=== PATIENT | female | born 1975 | race Two or more races ===

== ENCOUNTER → 2016-03-05 | Outpatient (CLI) | payer BC ==
[2016-03-05 09:56] LABS: Urine RBC None Seen /hpf (0 - 4)
[2016-03-05 10:14] LABS: Basophils # (auto) 0 uL; Basophils % (auto) 0.4 % (0.0-2.0); DEFINITIVE VIEW TRANSMISSION; Eosinophils # (auto) 0.2 uL; Eosinophils % (auto) 1.6 % (0.0-7.0); Hematocrit 37.7 % (36.0-46.0); Hemoglobin 11.3 g/dL (12.2-16.2); Lymphocytes # (auto) 1.3 uL; Lymphocytes % (auto) 13.3 % (10.0-50.0); Mean Corpuscular Volume 66.4 fL (80.0-100.0); Mean Platelet Volume 8.1 fL (7.4-10.4); Monocytes # (auto) 0.8 uL; Monocytes % (auto) 8.3 % (0.0-12.0); Neutrophils # (auto) 7.3 uL; Neutrophils % (auto) 76.4 % (37.0-80.0); Platelet Count (auto) 412 10^3/uL (140-450); Red Cell Distribution Width 20.4 % (11.6-16.0); White Blood Cell 9.6 10^3/uL (4.4-10.8)
[2016-03-05 10:52] LABS: Albumin 3.6 g/dL (3.4-5.0); BUN/Creatinine Ratio 15.9; Bilirubin, Total 0.5 mg/dL (0.2-1.0); Calcium 8.5 mg/dL (8.5-10.1)
[2016-03-05 11:07] LABS: Urine Bilirubin Negative (Negative); Urine Blood Negative /uL (Negative); Urine Color Yellow (Yellow); Urine Glucose Normal (Normal); Urine Ketone Negative (Negative); Urine Mucus FEW (None Seen); Urine Nitrite Negative (Negative); Urine Squamous Epithelial Cell MOD /hpf (<5); Urine Urobilinogen Normal (Negative)
[2016-03-05 13:55] LABS: Anisocytosis Moderate; Hypochromia Marked; Microcytosis Marked; Platelet Estimate Adequate
== END | disposition home or self-care (01) ==
LOC: LAB 09:08
PROVIDERS: ATTEND Family Medicine
DX: E11.9 Type 2 diabetes mellitus without complications (principal); I10 Essential (primary) hypertension
CPT/HCPCS: 36415; 80053; 80061; 81001; 82043; 82306; 83036; 84443; 85025; 85049

== ENCOUNTER → 2016-03-22 | Outpatient (CLI) | payer BC | END | disposition home or self-care (01) | LOC: LAB 12:58 | PROVIDERS: ATTEND Physician Assistant | DX: R51 Headache (principal); N39.0 Urinary tract infection, site not specified | CPT/HCPCS: 87086 ==

== ENCOUNTER → 2016-05-31 | Outpatient (CLI) | payer BC ==
[2016-05-31 07:35] LABS: Urine Bilirubin Negative (Negative); Urine Blood TRACE /uL (Negative); Urine Color Yellow (Yellow); Urine Glucose Normal (Normal); Urine Ketone Negative (Negative); Urine Mucus FEW (None Seen); Urine Nitrite Negative (Negative); Urine RBC 1 /hpf (0 - 4); Urine Squamous Epithelial Cell MOD /hpf (<5); Urine Urobilinogen Normal (Negative)
[2016-05-31 07:36] LABS: Basophils # (auto) 0.1 uL; Basophils % (auto) 1.3 % (0.0-2.0); DEFINITIVE VIEW TRANSMISSION; Eosinophils # (auto) 0.2 uL; Eosinophils % (auto) 1.8 % (0.0-7.0); Hematocrit 44.5 % (36.0-46.0); Lymphocytes # (auto) 1.5 uL; Lymphocytes % (auto) 16.2 % (10.0-50.0); Mean Corpuscular Hemoglobin 24.6 pg (28.0-32.0); Mean Corpuscular Hgb Conc. 31.4 g/dL (32.0-36.0); Mean Corpuscular Volume 78.4 fL (80.0-100.0); Mean Platelet Volume 8.8 fL (7.4-10.4); Monocytes # (auto) 0.8 uL; Monocytes % (auto) 8.1 % (0.0-12.0); Neutrophils # (auto) 6.9 uL; Neutrophils % (auto) 72.6 % (37.0-80.0); Platelet Count (auto) 358 10^3/uL (140-450); SUSPECT VIEW TRANSMISSION; White Blood Cell 9.5 10^3/uL (4.4-10.8)
[2016-05-31 07:49] LABS: INR 0.96 (0.9-1.15); Partial Thromboplastin Time 24.7 sec (22.64-33.71); Prothrombin Time 10.4 sec (9.37-12.3)
[2016-05-31 07:57] LABS: Red Cell Distribution Width 28.8 % (11.6-16.0)
[2016-05-31 08:25] LABS: Albumin 3.5 g/dL (3.4-5.0); BUN/Creatinine Ratio 15.5; Bilirubin, Total 0.7 mg/dL (0.2-1.0); Calcium 8.8 mg/dL (8.5-10.1); Potassium 3.8 mmol/L (3.5-5.1); Total Protein 6.8 g/dL (6.4-8.2)
[2016-05-31 13:32] LABS: Platelet Estimate Adequate
[2016-05-31 13:33] LABS: Anisocytosis Slight; Hypochromia Moderate; Microcytosis Slight; Stomatocytes Few
[2016-05-31 13:35] LABS: Tear Drop Cells FEW
== END | disposition home or self-care (01) ==
LOC: LAB 06:44
PROVIDERS: ATTEND Family Medicine
DX: E11.9 Type 2 diabetes mellitus without complications (principal); Z01.812 Encounter for preprocedural laboratory examination; N92.4 Excessive bleeding in the premenopausal period
CPT/HCPCS: 36415; 80053; 81001; 83036; 85025; 85610; 85730

== ENCOUNTER 2016-07-22 14:08 | Emergency (ER) | payer BC ==
[~2016-07-22] VITALS: Ht 152.4 cm; Wt 81.6 kg
[2016-07-22] MEDS ORDERED: cloNIDine HCL 0.1 MG TAB ONE (14:19)
[2016-07-22] MEDS ORDERED: cloNIDine HCL 0.1 MG TAB PO ONE (14:30)
[2016-07-22 14:56] LABS: Basophils # (auto) 0 uL; Basophils % (auto) 0.3 % (0.0-2.0); Eosinophils # (auto) 0.1 uL; Eosinophils % (auto) 0.6 % (0.0-7.0); Hemoglobin 14.8 g/dL (12.2-16.2); Lymphocytes # (auto) 1.7 uL; Mean Corpuscular Hgb Conc. 32.8 g/dL (32.0-36.0); Mean Corpuscular Volume 82.5 fL (80.0-100.0); Mean Platelet Volume 8.5 fL (7.4-10.4); Monocytes # (auto) 0.9 uL; Monocytes % (auto) 6.8 % (0.0-12.0); Neutrophils # (auto) 11.2 uL; Neutrophils % (auto) 80.3 % (37.0-80.0); Platelet Count (auto) 363 10^3/uL (140-450); Red Cell Distribution Width 17.5 % (11.6-16.0); White Blood Cell 13.9 10^3/uL (4.4-10.8)
[2016-07-22 15:18] LABS: Albumin 3.4 g/dL (3.4-5.0); Anion Gap 11 (5-15); BUN/Creatinine Ratio 20.5; Blood Urea Nitrogen 15 mg/dL (7-18); Carbon Dioxide 24 mmol/L (21-32); Chloride 104 mmol/L (98-107); GFR African American 112 mL/min; GFR Non-African American 92 mL/min; Glucose 210 mg/dL (74-106); Magnesium 2.1 mg/dL (1.6-2.6); Potassium 3.6 mmol/L (3.5-5.1); Sodium 139 mmol/L (136-145)
[2016-07-22 15:25] LABS: Alkaline Phosphatase 80 U/L (45-117); Aspartate Aminotransferase 22 U/L (15-37); Bilirubin, Total 0.2 mg/dL (0.2-1.0); Total Protein 7.1 g/dL (6.4-8.2)
[2016-07-22 16:52] VITALS: BP 127/93
== END 2016-07-22 17:32 | disposition home or self-care (01) ==
LOC: ER 14:17
DX: I16.0 Hypertensive urgency (principal); E11.9 Type 2 diabetes mellitus without complications; I10 Essential (primary) hypertension
CPT/HCPCS: 36415; 70450; 80053; 83735; 84484; 85025

== ENCOUNTER → 2017-05-11 | Outpatient (CLI) | payer BC ==
[2017-05-11 07:59] LABS: Basophils # (auto) 0.1 uL; Eosinophils # (auto) 0.2 uL; Hematocrit 36.9 % (36.0-46.0); Lymphocytes # (auto) 1.6 uL; Mean Corpuscular Hemoglobin 21.5 pg (28.0-32.0); Neutrophils # (auto) 6.1 uL; Red Blood Cells 5.29 10^6/uL (4.0-5.20)
[2017-05-11 08:01] LABS: Basophils % (auto) 0.6 % (0.0-2.0); Eosinophils % (auto) 1.9 % (0.0-7.0); Hemoglobin 11.3 g/dL (12.2-16.2); Lymphocytes % (auto) 18.1 % (10.0-50.0); Mean Corpuscular Hgb Conc. 30.7 g/dL (32.0-36.0); Mean Corpuscular Volume 69.9 fL (80.0-100.0); Monocytes # (auto) 0.8 uL; Monocytes % (auto) 9.3 % (0.0-12.0); Neutrophils % (auto) 70.1 % (37.0-80.0); Platelet Count (auto) 460 10^3/uL (140-450); Red Cell Distribution Width 18.6 % (11.8-14.3); White Blood Cell 8.7 10^3/uL (4.4-10.8)
[2017-05-11 08:19] LABS: Urine Bacteria NONE SEEN /hpf (None Seen); Urine Blood Negative /uL (Negative); Urine Mucus FEW (None Seen); Urine Specific Gravity 1.028 (1.001-1.035); Urine WBC 37 /hpf (0 - 5)
[2017-05-11 09:56] LABS: Albumin 3.4 g/dL (3.4-5.0); BUN/Creatinine Ratio 22.5; Bilirubin, Total 0.5 mg/dL (0.2-1.0); Calcium 8.4 mg/dL (8.5-10.1); Total Protein 6.7 g/dL (6.4-8.2)
[2017-05-11 12:11] LABS: Potassium 3.5 mmol/L (3.5-5.1)
== END | disposition home or self-care (01) ==
LOC: LAB 07:03
PROVIDERS: ATTEND Family Medicine
DX: I10 Essential (primary) hypertension (principal); E11.9 Type 2 diabetes mellitus without complications
CPT/HCPCS: 36415; 80053; 80061; 81001; 82043; 82306; 82607; 83036; 84443; 85025

== ENCOUNTER → 2018-04-07 | Outpatient (CLI) | payer BC ==
[2018-04-07 08:42] LABS: Eosinophils # (auto) 0.1 uL; Hemoglobin 9.7 g/dL (12.2-16.2); Mean Corpuscular Hemoglobin 17.9 pg (28.0-32.0); Neutrophils % (auto) 82.9 % (37.0-80.0); White Blood Cell 10.6 10^3/uL (4.4-10.8)
[2018-04-07 08:44] LABS: Basophils # (auto) 0.1 uL; Basophils % (auto) 0.8 % (0.0-2.0); Eosinophils % (auto) 0.8 % (0.0-7.0); Hematocrit 33.4 % (36.0-46.0); Lymphocytes # (auto) 0.9 uL; Lymphocytes % (auto) 8.1 % (10.0-50.0); Mean Corpuscular Hgb Conc. 29.1 g/dL (32.0-36.0); Mean Corpuscular Volume 61.3 fL (80.0-100.0); Monocytes # (auto) 0.8 uL; Monocytes % (auto) 7.4 % (0.0-12.0); Neutrophils # (auto) 8.8 uL; Platelet Count (auto) 510 10^3/uL (140-450); Red Blood Cells 5.44 10^6/uL (4.0-5.20); Red Cell Distribution Width 19.4 % (11.8-14.3)
[2018-04-07 08:50] LABS: Urine Amorphous Crystal FEW /hpf (None Seen); Urine Bacteria NONE SEEN /hpf (None Seen); Urine Blood Negative /uL (Negative); Urine Specific Gravity 1.012 (1.001-1.035); Urine WBC 26 /hpf (0 - 5); Urine WBC Clumps PRESENT /hpf (None Seen)
[2018-04-07 09:22] LABS: Potassium 3.5 mmol/L (3.5-5.1)
[2018-04-07 09:34] LABS: Albumin 3.5 g/dL (3.4-5.0); BUN/Creatinine Ratio 14.6; Bilirubin, Total 0.5 mg/dL (0.2-1.0); Calcium 8.7 mg/dL (8.5-10.1)
== END | disposition home or self-care (01) ==
LOC: LAB 08:17
PROVIDERS: ATTEND Family Medicine
DX: E55.9 Vitamin D deficiency, unspecified (principal); I10 Essential (primary) hypertension; E11.69 Type 2 diabetes mellitus with other specified complication; R35.0 Frequency of micturition
CPT/HCPCS: 36415; 80053; 80061; 81001; 82306; 82607; 83036; 85025

== ENCOUNTER → 2018-12-05 | Outpatient (CLI) | payer BC ==
[2018-12-05 08:38] LABS: Basophils # (auto) 0.1 uL; Eosinophils # (auto) 0.1 uL; Hemoglobin 8.5 g/dL (12.2-16.2); Lymphocytes # (auto) 1.1 uL; Neutrophils # (auto) 5.5 uL; Platelet Count (auto) 496 10^3/uL (140-450)
[2018-12-05 08:41] LABS: Basophils % (auto) 0.8 % (0.0-2.0); Eosinophils % (auto) 1.5 % (0.0-7.0); Hematocrit 29.8 % (36.0-46.0); Lymphocytes % (auto) 14.3 % (10.0-50.0); Mean Corpuscular Hemoglobin 16.8 pg (28.0-32.0); Mean Corpuscular Hgb Conc. 28.6 g/dL (32.0-36.0); Mean Corpuscular Volume 58.7 fL (80.0-100.0); Monocytes # (auto) 0.8 uL; Monocytes % (auto) 10.6 % (0.0-12.0); Neutrophils % (auto) 72.8 % (37.0-80.0); Nucleated Red Blood Cells % 0.1 %; Red Blood Cells 5.08 10^6/uL (4.0-5.20); White Blood Cell 7.6 10^3/uL (4.4-10.8)
[2018-12-05 08:42] LABS: Red Cell Distribution Width 20.9 % (11.8-14.3)
[2018-12-05 08:44] LABS: Urine Bacteria NONE SEEN /hpf (None Seen); Urine Blood Negative /uL (Negative); Urine Mucus FEW (None Seen); Urine Specific Gravity 1.035 (1.001-1.035); Urine WBC 12 /hpf (0 - 5)
[2018-12-05 09:06] LABS: Albumin 3.5 g/dL (3.4-5.0); BUN/Creatinine Ratio 27.4; Potassium 3.6 mmol/L (3.5-5.1)
[2018-12-05 09:14] LABS: Bilirubin, Total 0.4 mg/dL (0.2-1.0)
== END | disposition home or self-care (01) ==
LOC: LAB 08:01
PROVIDERS: ATTEND Family Medicine
DX: E55.9 Vitamin D deficiency, unspecified (principal); E11.65 Type 2 diabetes mellitus with hyperglycemia; I10 Essential (primary) hypertension; D64.9 Anemia, unspecified
CPT/HCPCS: 36415; 80053; 80061; 81001; 82043; 82607; 83036; 84443; 85025

== ENCOUNTER → 2019-08-27 | Outpatient (CLI) | payer BC ==
[2019-08-27 07:53] LABS: Basophils # (auto) 0.1 10 ^3/uL (0-0.2); Eosinophils # (auto) 0.1 10 ^3/uL (0-0.8); Hemoglobin 9.6 g/dL (12.2-16.2); Lymphocytes # (auto) 1.3 10 ^3/uL (0.4-5.4); Mean Corpuscular Volume 63.4 fL (80.0-100.0)
[2019-08-27 07:57] LABS: Eosinophils % (auto) 1.4 % (0.0-7.0); Hematocrit 32.4 % (36.0-46.0); Lymphocytes % (auto) 15.3 % (10.0-50.0); Mean Corpuscular Hemoglobin 18.9 pg (28.0-32.0); Mean Corpuscular Hgb Conc. 29.8 g/dL (32.0-36.0); Monocytes # (auto) 0.8 10 ^3/uL (0-1.3); Monocytes % (auto) 9.1 % (0.0-12.0); Neutrophils # (auto) 6.1 10 ^3/uL (1.6-8.6); Neutrophils % (auto) 73.2 % (37.0-80.0); Nucleated Red Blood Cells % 0.2 %; Platelet Count (auto) 472 10^3/uL (140-450); Red Blood Cells 5.11 10^6/uL (4.0-5.20); White Blood Cell 8.3 10^3/uL (4.4-10.8)
[2019-08-27 07:59] LABS: Red Cell Distribution Width 20.5 % (11.8-14.3)
[2019-08-27 08:02] LABS: Urine Bacteria NONE SEEN /hpf (None Seen); Urine Blood Negative /uL (Negative); Urine Mucus FEW (None Seen); Urine Specific Gravity 1.022 (1.001-1.035); Urine WBC 10 /hpf (0 - 5)
[2019-08-27 08:19] LABS: Albumin 3.3 g/dL (3.4-5.0); Calcium 8.7 mg/dL (8.5-10.1); Potassium 3.6 mmol/L (3.5-5.1)
[2019-08-27 08:24] LABS: BUN/Creatinine Ratio 22.2; Bilirubin, Direct 0.1 mg/dL (0-0.2); Bilirubin, Total 0.5 mg/dL (0.2-1.0); Total Protein 6.5 g/dL (6.4-8.2)
== END | disposition home or self-care (01) ==
LOC: LAB 07:14
PROVIDERS: ATTEND Family Medicine
DX: I10 Essential (primary) hypertension (principal); E11.65 Type 2 diabetes mellitus with hyperglycemia; K21.9 Gastro-esophageal reflux disease without esophagitis; E66.09 Other obesity due to excess calories; D64.9 Anemia, unspecified
CPT/HCPCS: 36415; 80053; 80061; 80076; 81001; 82043; 82306; 82607; 83036; 85025

== ENCOUNTER → 2020-01-25 | Outpatient (CLI) | payer BC | END | disposition home or self-care (01) | LOC: LAB 13:44 | PROVIDERS: ATTEND Nurse Practitioner Family | DX: U07.1 COVID-19 (principal) | CPT/HCPCS: C9803; U0003 ==

== ENCOUNTER 2020-05-02 18:30 | Inpatient (IN) | payer BC ==
[~2020-05-02] VITALS: Ht 152.4 cm; Wt 77.8 kg
[2020-05-02 19:59] LABS: INR 0.94 (0.9-1.15); Partial Thromboplastin Time 22.9 sec (23.0-31.2)
[2020-05-02 20:02] LABS: Albumin 3.3 g/dL (3.4-5.0); Anion Gap 10 (5-15); Blood Urea Nitrogen 19 mg/dL (7-18); Calcium 8.7 mg/dL (8.5-10.1); Carbon Dioxide 24 mmol/L (21-32); Chloride 105 mmol/L (98-107); Glucose 325 mg/dL (74-106); Sodium 139 mmol/L (136-145)
[2020-05-02 20:08] LABS: Alanine Aminotransferase 28 U/L (13-56); Alkaline Phosphatase 73 U/L (45-117); Aspartate Aminotransferase 19 U/L (15-37); Bilirubin, Total 0.6 mg/dL (0.2-1.0); GFR African American 105 mL/min; GFR Non-African American 87 mL/min; Total Protein 6.8 g/dL (6.4-8.2)
[2020-05-02] MEDS ORDERED: IOHEXOL 350 MG/ML 100ML IJ ONE (21:01)
[2020-05-02] MEDS ORDERED: ASPirin-EC 81 mg tab PO ONE (22:45)
[2020-05-02] MEDS ORDERED: ONDANSETRON HCL 4 MG/2 ML VIAL IV PRN (23:45)
[2020-05-02] MEDS ORDERED: MORPHINE SULF INJ 2 MG/ML SYRINGE 1ML IV PRN (23:45)
[2020-05-02] MEDS ORDERED: hydrALAZINE HCL 20 MG/ML VL IV PRN (23:45)
[2020-05-02] MEDS ORDERED: MORPHINE SULFATE 4 MG/ML SYR/VIAL IV PRN (23:45)
[2020-05-02] MEDS ORDERED: NITROGLYCERIN 0.4 MG SL TAB SL PRN (23:45)
[2020-05-02] MEDS ORDERED: HYDROcodone-ACET 5/325MG TAB PO PRN (23:45)
[2020-05-02] MEDS ORDERED: DOCUSATE SOD 100 MG CAP PO PRN (23:45)
[2020-05-02] MEDS ORDERED: DEXTROSE (50%) 50ML SYRG IV PRN (23:45)
[2020-05-02 23:58] LABS: Basophils # (auto) 0.1 10 ^3/uL (0-0.2); Basophils % (auto) 1.3 % (0.0-2.0); Eosinophils # (auto) 0.1 10 ^3/uL (0-0.8); Eosinophils % (auto) 1.1 % (0.0-7.0); Hematocrit 33.6 % (36.0-46.0); Hemoglobin 10.6 g/dL (12.2-16.2); Lymphocytes # (auto) 1.1 10 ^3/uL (0.4-5.4); Lymphocytes % (auto) 11.2 % (10.0-50.0); Mean Corpuscular Hemoglobin 22.3 pg (28.0-32.0); Mean Corpuscular Hgb Conc. 31.6 g/dL (32.0-36.0); Mean Corpuscular Volume 70.7 fL (80.0-100.0); Monocytes # (auto) 0.7 10 ^3/uL (0-1.3); Monocytes % (auto) 7.1 % (0.0-12.0); Neutrophils % (auto) 79.3 % (37.0-80.0); Platelet Count (auto) 355 10^3/uL (140-450); Red Blood Cells 4.76 10^6/uL (4.0-5.20); Red Cell Distribution Width 17.8 % (11.8-14.3)
[2020-05-03] VITALS (7 sets, daily range): BP systolic 117–138; BP diastolic 64–81
[2020-05-03] MEDS: ACCU-CHEK COMFORT CURVE STRIP VI SCH ×7 (00:59→23:36)
[2020-05-03] MEDS: InsuLIN REG 1unit/0.01ml Soln (100units/ml) SC SCH ×7 (01:12→23:44)
[2020-05-03] MEDS ORDERED: MULT-1018 PO (04:13)
[2020-05-03] MEDS ORDERED: ZINC220C8 PO (04:13)
[2020-05-03] MEDS ORDERED: FERR1TAB36 PO (04:13)
[2020-05-03] MEDS ORDERED: ASCO500T11 PO (04:13)
[2020-05-03] MEDS ORDERED: CARV12.544 PO (04:13)
[2020-05-03] MEDS ORDERED: SITA100T7 PO (04:13)
[2020-05-03] MEDS ORDERED: METF500S PO (04:13)
[2020-05-03] MEDS ORDERED: LOSA-39 PO (04:13)
[2020-05-03] MEDS: SODIUM CHLOR 0.9% PF (SALINE LOCK) 10ML VIAL/SYR IV SCH ×3 (05:40→22:00)
[2020-05-03] MEDS ORDERED: ALBUTEROL SULF HFA 90MCG INH 200DOSE IN SCH (06:00)
[2020-05-03] MEDS ORDERED: ALBUTEROL SULF HFA 90MCG INH 200DOSE IN PRN (06:00)
[2020-05-03] MEDS: ZINC SULFATE 220mg CAP or TAB PO SCH (09:55)
[2020-05-03] MEDS: MULTIPLE VITAMIN TAB PO SCH (09:56)
[2020-05-03] MEDS: amLODIPine BESYLATE 5 MG TAB PO SCH (09:57)
[2020-05-03] MEDS: CHOLECALCIFEROL (VITD3) 1,000UNIT=25mCg TAB PO SCH (09:58)
[2020-05-03] MEDS: FAMOTIDINE 20 MG TAB PO SCH ×2 (09:58→23:36)
[2020-05-03] MEDS: ASCORBIC ACID 500 MG TAB PO SCH ×2 (09:58→23:36)
[2020-05-03] MEDS: ENOXAPARIN SOD 40 MG/0.4 ML SYRINGE SC SCH (09:59)
[2020-05-03 10:04] LABS: Basophils # (auto) 0.1 10 ^3/uL (0-0.2); Eosinophils # (auto) 0.2 10 ^3/uL (0-0.8); Lymphocytes # (auto) 1.3 10 ^3/uL (0.4-5.4); Monocytes # (auto) 0.7 10 ^3/uL (0-1.3)
[2020-05-03 10:07] LABS: Basophils % (auto) 0.8 % (0.0-2.0); Eosinophils % (auto) 1.7 % (0.0-7.0); Hematocrit 35.3 % (36.0-46.0); Hemoglobin 10.9 g/dL (12.2-16.2); Lymphocytes % (auto) 14.5 % (10.0-50.0); Mean Corpuscular Hemoglobin 22.1 pg (28.0-32.0); Mean Corpuscular Volume 71.3 fL (80.0-100.0); Monocytes % (auto) 7.9 % (0.0-12.0); Neutrophils # (auto) 6.9 10 ^3/uL (1.6-8.6); Neutrophils % (auto) 75.1 % (37.0-80.0); Nucleated Red Blood Cells % 0.1 %; Platelet Count (auto) 360 10^3/uL (140-450); Red Blood Cells 4.95 10^6/uL (4.0-5.20); Red Cell Distribution Width 18.2 % (11.8-14.3); White Blood Cell 9.2 10^3/uL (4.4-10.8)
[2020-05-03 10:29] LABS: Potassium 3.7 mmol/L (3.5-5.1)
[2020-05-03 10:38] LABS: Albumin 3.1 g/dL (3.4-5.0); BUN/Creatinine Ratio 21.2; Bilirubin, Total 0.6 mg/dL (0.2-1.0); Calcium 8.4 mg/dL (8.5-10.1); Total Protein 6.3 g/dL (6.4-8.2)
[2020-05-03] MEDS: FERROUS SULFATE 325 MG TAB PO SCH (17:48)
[2020-05-04] MEDS: ACCU-CHEK COMFORT CURVE STRIP VI SCH ×5 (03:58→17:46)
[2020-05-04] MEDS: InsuLIN REG 1unit/0.01ml Soln (100units/ml) SC SCH ×5 (04:07→20:04)
[2020-05-04 05:00] VITALS: BP 105/66
[2020-05-04] MEDS: SODIUM CHLOR 0.9% PF (SALINE LOCK) 10ML VIAL/SYR IV SCH ×3 (06:00→21:55)
[2020-05-04] MEDS: FERROUS SULFATE 325 MG TAB PO SCH ×2 (08:33→18:00)
[2020-05-04] MEDS: ACETAMINOPHEN 325 MG TAB PO PRN ×3 (08:45→17:49)
[2020-05-04 09:00] VITALS: BP 134/82
[2020-05-04] MEDS: CHOLECALCIFEROL (VITD3) 1,000UNIT=25mCg TAB PO SCH (10:00)
[2020-05-04] MEDS: MULTIPLE VITAMIN TAB PO SCH (12:27)
[2020-05-04] MEDS: ZINC SULFATE 220mg CAP or TAB PO SCH (12:27)
[2020-05-04] MEDS: amLODIPine BESYLATE 5 MG TAB PO SCH (12:28)
[2020-05-04] MEDS: ENOXAPARIN SOD 40 MG/0.4 ML SYRINGE SC SCH (12:29)
[2020-05-04] MEDS: FAMOTIDINE 20 MG TAB PO SCH ×2 (12:29→21:55)
[2020-05-04] MEDS: ASCORBIC ACID 500 MG TAB PO SCH ×2 (12:30→21:55)
[2020-05-04 13:00] VITALS: BP 134/78
[2020-05-04] MEDS ORDERED: levoFLOXacin 500MG 100 ML IV ONE (13:45)
[2020-05-04 17:12] VITALS: BP 126/82
[2020-05-04] MEDS ORDERED: methylPREDNISolone SOD SUCC 125 MG/2 ML VL IV ONE (17:30)
[2020-05-04] MEDS ORDERED: diphenhdrAMINE HCL 50 MG/1 ML VL IV ONE (17:30)
[2020-05-04] MEDS ORDERED: cefTRIAXone 1GM/50ML D5W 50 ML IV SCH (18:00)
[2020-05-04 22:00] VITALS: BP 114/74
[2020-05-05] MEDS: InsuLIN REG 1unit/0.01ml Soln (100units/ml) SC SCH ×8 (00:17→23:47)
[2020-05-05] MEDS: ACCU-CHEK COMFORT CURVE STRIP VI SCH ×7 (04:00→23:39)
[2020-05-05 05:00] VITALS: BP 113/69
[2020-05-05] MEDS: SODIUM CHLOR 0.9% PF (SALINE LOCK) 10ML VIAL/SYR IV SCH ×3 (05:37→21:35)
[2020-05-05] MEDS ORDERED: ADENOSINE 65 MG in GIVE UN-DILUTED 0 ML IV STA (08:23)
[2020-05-05 08:41] VITALS: BP 116/67
[2020-05-05] MEDS: cefTRIAXone 1GM/50ML D5W 50 ML IV SCH (09:00)
[2020-05-05] MEDS: MULTIPLE VITAMIN TAB PO SCH (09:12)
[2020-05-05] MEDS: ASCORBIC ACID 500 MG TAB PO SCH ×2 (09:12→21:35)
[2020-05-05] MEDS: ZINC SULFATE 220mg CAP or TAB PO SCH (09:12)
[2020-05-05] MEDS: FERROUS SULFATE 325 MG TAB PO SCH ×2 (09:12→17:45)
[2020-05-05] MEDS: FAMOTIDINE 20 MG TAB PO SCH ×2 (09:13→21:35)
[2020-05-05] MEDS: ENOXAPARIN SOD 40 MG/0.4 ML SYRINGE SC SCH (09:18)
[2020-05-05 09:39] VITALS: BP 139/88
[2020-05-05] MEDS: CHOLECALCIFEROL (VITD3) 1,000UNIT=25mCg TAB PO SCH (10:00)
[2020-05-05] MEDS ORDERED: levoFLOXacin 500MG 100 ML IV SCH (10:00)
[2020-05-05] MEDS: amLODIPine BESYLATE 5 MG TAB PO SCH (10:00)
[2020-05-05] MEDS: ACETAMINOPHEN 325 MG TAB PO PRN (12:32)
[2020-05-05 12:47] VITALS: BP 125/87
[2020-05-05 17:00] VITALS: BP 138/83
[2020-05-05 22:00] VITALS: BP_SYST 102; BP_SYST 137; BP_DIAS 61; BP_DIAS 81
[2020-05-05] MEDS ORDERED: ATORVASTATIN 20 MG TAB PO SCH (22:00)
[2020-05-06] MEDS: ACCU-CHEK COMFORT CURVE STRIP VI SCH ×3 (04:10→12:00)
[2020-05-06] MEDS: InsuLIN REG 1unit/0.01ml Soln (100units/ml) SC SCH ×3 (04:12→12:00)
[2020-05-06 05:00] VITALS: BP 126/75
[2020-05-06] MEDS: SODIUM CHLOR 0.9% PF (SALINE LOCK) 10ML VIAL/SYR IV SCH (06:41)
[2020-05-06] MEDS: FERROUS SULFATE 325 MG TAB PO SCH (08:32)
[2020-05-06 08:58] VITALS: BP 130/73
[2020-05-06] MEDS: cefTRIAXone 1GM/50ML D5W 50 ML IV SCH ×2 (09:00→09:51)
[2020-05-06] MEDS: ZINC SULFATE 220mg CAP or TAB PO SCH (10:08)
[2020-05-06] MEDS: ASCORBIC ACID 500 MG TAB PO SCH (10:08)
[2020-05-06] MEDS: MULTIPLE VITAMIN TAB PO SCH (10:08)
[2020-05-06] MEDS: ENOXAPARIN SOD 40 MG/0.4 ML SYRINGE SC SCH (10:09)
[2020-05-06] MEDS: FAMOTIDINE 20 MG TAB PO SCH (10:10)
[2020-05-06] MEDS: CHOLECALCIFEROL (VITD3) 1,000UNIT=25mCg TAB PO SCH (10:12)
[2020-05-06] MEDS: amLODIPine BESYLATE 5 MG TAB PO SCH (10:13)
[2020-05-06] MEDS ORDERED: ONDANSETRON ODT 4 MG TAB PO ONE (10:45)
[2020-05-06 12:34] VITALS: BP 134/96
== END 2020-05-06 13:00 | disposition home or self-care (01) | DRG 313 ==
LOC: ER 18:30 → TELE 23:44 → TELE-EAST 05-03 01:53 → TELE-WESTW 05-03 19:34
PROVIDERS: ADMIT Nurse Practitioner Family; ATTEND Family Medicine
DX: R07.89 Other chest pain (principal); N39.0 Urinary tract infection, site not specified; I20.0 Unstable angina; E11.65 Type 2 diabetes mellitus with hyperglycemia; E27.9 Disorder of adrenal gland, unspecified; E78.00 Pure hypercholesterolemia, unspecified; Z20.822 Contact with and (suspected) exposure to COVID-19; E78.5 Hyperlipidemia, unspecified; I10 Essential (primary) hypertension; K21.9 Gastro-esophageal reflux disease without esophagitis; Z86.16 Personal history of COVID-19; D17.79 Benign lipomatous neoplasm of other sites; Z88.2 Allergy status to sulfonamides
CPT/HCPCS: 36415; 71275; 78452; 80053; 80061; 82962; 83880; 84443; 84484; 85025; 85379; 85610; 85730; 87086; 87426; 93005; 93017; 93306; G0378; J0153; J0696; J1815; J1956; Q0162

== ENCOUNTER → 2020-05-02 | Outpatient (CLI) | payer BC ==
[~2020-05-02] MED LIST: ASCO500T11 PO; CARV12.544 PO; FERR1TAB36 PO; LOSA-39 PO; METF500S PO; MULT-1018 PO; SITA100T7 PO; ZINC220C8 PO
[2020-05-02 07:55] LABS: Urine Bacteria NONE SEEN /hpf (None Seen); Urine Blood TRACE /uL (Negative); Urine WBC 26 /hpf (0 - 5)
[2020-05-02 08:09] LABS: INR 0.98 (0.9-1.15); Partial Thromboplastin Time 23.8 sec (23.0-31.2)
[2020-05-02 08:35] LABS: Albumin 3.4 g/dL (3.4-5.0); Potassium 4.1 mmol/L (3.5-5.1)
[2020-05-02 08:41] LABS: Bilirubin, Total 0.7 mg/dL (0.2-1.0)
== END | disposition home or self-care (01) ==
LOC: LAB 07:17
PROVIDERS: ATTEND Family Medicine
DX: E11.65 Type 2 diabetes mellitus with hyperglycemia (principal); E66.09 Other obesity due to excess calories; R07.9 Chest pain, unspecified; D50.8 Other iron deficiency anemias; Z86.16 Personal history of COVID-19
CPT/HCPCS: 36415; 80053; 80061; 81001; 83036; 84443; 85379; 85610; 85652; 85730

== ENCOUNTER → 2021-01-19 | Outpatient (CLI) | payer BC ==
[2021-01-19 08:59] LABS: Basophils # (auto) 0.1 10 ^3/uL (0-0.2); Hemoglobin 9.7 g/dL (12.2-16.2); Lymphocytes # (auto) 1.6 10 ^3/uL (0.4-5.4); Mean Corpuscular Hgb Conc. 28.7 g/dL (32.0-36.0); Mean Corpuscular Volume 61.1 fL (80.0-100.0); Neutrophils # (auto) 7.8 10 ^3/uL (1.6-8.6)
[2021-01-19 09:01] LABS: Basophils % (auto) 0.8 % (0.0-2.0); Eosinophils # (auto) 0.1 10 ^3/uL (0-0.8); Eosinophils % (auto) 1.4 % (0.0-7.0); Hematocrit 33.8 % (36.0-46.0); Mean Corpuscular Hemoglobin 17.5 pg (28.0-32.0); Monocytes % (auto) 9.1 % (0.0-12.0); Neutrophils % (auto) 73.7 % (37.0-80.0); Red Blood Cells 5.54 10^6/uL (4.0-5.20); Red Cell Distribution Width 19.7 % (11.8-14.3); White Blood Cell 10.5 10^3/uL (4.4-10.8)
[2021-01-19 09:06] LABS: Urine Bacteria NONE SEEN /hpf (None Seen); Urine Blood TRACE /uL (Negative); Urine WBC 34 /hpf (0 - 5)
[2021-01-19 09:45] LABS: Potassium 3.8 mmol/L (3.5-5.1)
[2021-01-19 09:54] LABS: Albumin 3.4 g/dL (3.4-5.0); BUN/Creatinine Ratio 26.2; Bilirubin, Total 0.5 mg/dL (0.2-1.0); Calcium 8.7 mg/dL (8.5-10.1); Total Protein 6.7 g/dL (6.4-8.2)
== END | disposition home or self-care (01) ==
LOC: LAB 08:30
PROVIDERS: ATTEND Family Medicine
DX: I10 Essential (primary) hypertension (principal)
CPT/HCPCS: 36415; 80053; 80061; 81001; 82043; 82607; 83036; 84443; 85025

== ENCOUNTER → 2021-02-18 | Outpatient (CLI) | payer BC ==
[2021-02-18 11:17] LABS: Follicle Stimulating Hormone 6.87 IU/L (SEE BELOW); Leuteinizing Hormone 4.5 IU/L
== END | disposition home or self-care (01) ==
LOC: LAB 08:51
PROVIDERS: ATTEND Obstetrics & Gynecology
DX: N95.1 Menopausal and female climacteric states (principal)
CPT/HCPCS: 36415; 82670; 83001; 83002; 84403; 84443

== ENCOUNTER → 2021-12-23 | Outpatient (CLI) | payer BC ==
[2021-12-23 07:11] LABS: Basophils # (auto) 0.1 10 ^3/uL (0-0.2); Basophils % (auto) 0.8 % (0.0-2.0); Eosinophils # (auto) 0.1 10 ^3/uL (0-0.8); Monocytes # (auto) 0.7 10 ^3/uL (0-1.3); Nucleated Red Blood Cells % 0.1 %; Red Cell Distribution Width 19.8 % (11.8-14.3)
[2021-12-23 07:12] LABS: Eosinophils % (auto) 1.1 % (0.0-7.0); Hematocrit 29.6 % (36.0-46.0); Hemoglobin 8.3 g/dL (12.2-16.2); Lymphocytes # (auto) 1.3 10 ^3/uL (0.4-5.4); Lymphocytes % (auto) 12.6 % (10.0-50.0); Mean Corpuscular Hemoglobin 15.8 pg (28.0-32.0); Mean Corpuscular Hgb Conc. 28.1 g/dL (32.0-36.0); Mean Corpuscular Volume 56.3 fL (80.0-100.0); Monocytes % (auto) 7.1 % (0.0-12.0); Neutrophils # (auto) 8.1 10 ^3/uL (1.6-8.6); Neutrophils % (auto) 78.4 % (37.0-80.0); Red Blood Cells 5.25 10^6/uL (4.0-5.20); White Blood Cell 10.4 10^3/uL (4.4-10.8)
[2021-12-23 07:49] LABS: Albumin 3.3 g/dL (3.4-5.0); BUN/Creatinine Ratio 24.6; Calcium 8.7 mg/dL (8.5-10.1); Potassium 4.2 mmol/L (3.5-5.1); Total Protein 6.6 g/dL (6.4-8.2)
[2021-12-23 07:55] LABS: Bilirubin, Total 0.5 mg/dL (0.2-1.0)
== END | disposition home or self-care (01) ==
LOC: LAB 06:44
PROVIDERS: ATTEND Student in an Organized Health Care Education/Training Program
DX: Z00.00 Encounter for general adult medical examination without abnormal findings (principal); I10 Essential (primary) hypertension; E11.9 Type 2 diabetes mellitus without complications
CPT/HCPCS: 36415; 80053; 80061; 83036; 85025

== ENCOUNTER → 2021-12-28 | Outpatient (CLI) | payer BC | END | disposition home or self-care (01) | LOC: LAB 10:20 | PROVIDERS: ATTEND Student in an Organized Health Care Education/Training Program | DX: Z00.00 Encounter for general adult medical examination without abnormal findings (principal); E11.9 Type 2 diabetes mellitus without complications; I10 Essential (primary) hypertension | CPT/HCPCS: 82274 ==

== ENCOUNTER → 2022-07-02 | Outpatient (CLI) | payer BC ==
[2022-07-02 11:24] LABS: Creatinine, Urine 310 mg/dL (30.0-125.0); Micro Albumin 179 mg/L (0-30.0)
== END | disposition home or self-care (01) ==
LOC: LAB 09:01
PROVIDERS: ATTEND Student in an Organized Health Care Education/Training Program
DX: E03.9 Hypothyroidism, unspecified (principal)
CPT/HCPCS: 36415; 82043; 82570; 83036

== ENCOUNTER 2024-11-13 09:22 | Outpatient (CLI) | payer BC ==
[~2024-11-13 09:22] MED LIST changes: -LOSA-39 PO; +LOSA-535 PO; -METF500S PO; +METF500S3 PO
[2024-11-13 10:35] LABS: Hemoglobin 11.1 g/dL (12.2-16.2)
[2024-11-13 10:38] LABS: Hematocrit 36.7 % (36.0-46.0); Mean Corpuscular Hemoglobin 18.1 pg (28.0-32.0); Mean Corpuscular Volume 59.8 fL (80.0-100.0); Nucleated Red Blood Cells % 0.2 %
[2024-11-13 10:43] LABS: Urine Protein, UAD TRACE (Negative)
[2024-11-13 11:03] LABS: Alanine Aminotransferase 28 U/L (7-40); Albumin 4.2 g/dL (3.2-4.8); Alkaline Phosphatase 65 U/L (46-116); Anion Gap 10 (5-15); BUN/Creatinine Ratio 19.0 (10.0-20.0); Blood Urea Nitrogen 12 mg/dL (9-23); Calcium 8.8 mg/dL (8.7-10.4); Carbon Dioxide 26 mmol/L (20-31); Chloride 107 mmol/L (98-107); HDL Cholesterol 48 mg/dL (40-59); Potassium 3.7 mmol/L (3.5-5.1); Sodium 143 mmol/L (136-145); Total Protein 6.8 g/dL (5.7-8.2)
[2024-11-13 11:04] LABS: Bilirubin, Total 0.6 mg/dL (0.2-1.0)
[2024-11-13 11:32] LABS: Microalb/Creat Ratio, Urine 238.0
[2024-11-13 11:33] LABS: Cholesterol 227 mg/dL (< 200); Glucose 180 mg/dL (74-106); Triglycerides 226 mg/dL (< 150)
[2024-11-13 12:07] LABS: Anisocytosis Slight
== END 2024-11-13 17:00 | disposition home or self-care (01) ==
LOC: LAB 09:22
PROVIDERS: ATTEND Nurse Practitioner
DX: I10 Essential (primary) hypertension (principal); E11.65 Type 2 diabetes mellitus with hyperglycemia; D50.8 Other iron deficiency anemias; Z12.11 Encounter for screening for malignant neoplasm of colon; Z68.32 Body mass index [BMI] 32.0-32.9, adult
CPT/HCPCS: 36415; 80053; 80061; 81001; 82043; 82570; 83036; 84443; 85025